=== PATIENT | male | born 1960 | race Caucasian/White ===

== ENCOUNTER 2018-01-05 05:24 | Emergency (ER) | payer BC, OTHER ==
[2018-01-05] MEDS ORDERED: diphenhydrAMINE 25mg capsule PO ONE (05:30)
[2018-01-05] MEDS ORDERED: famotidine 20mg tablet PO ONE (05:30)
[2018-01-05] MEDS ORDERED: predniSONE 20 mg tablet PO ONE (05:30)
[2018-01-05] MEDS ORDERED: FAMO-128 PO (05:45)
[2018-01-05] MEDS ORDERED: DIPH25CA83 PO (05:45)
[2018-01-05] MEDS ORDERED: METH4TAB81 PO (05:45)
== END 2018-01-05 05:40 | disposition home or self-care (01) ==
LOC: ER 05:25
DX: L25.9 Unspecified contact dermatitis, unspecified cause (principal); I10 Essential (primary) hypertension; E78.00 Pure hypercholesterolemia, unspecified; F17.200 Nicotine dependence, unspecified, uncomplicated; Z79.899 Other long term (current) drug therapy
CPT/HCPCS: 99284; J7512; Q0163